=== PATIENT | female | born 1985 | race Caucasian/White ===

== ENCOUNTER 2017-10-13 13:55 | Emergency (ER) | payer OTHER ==
[~2017-10-13] VITALS: Ht 154.9 cm; Wt 52.7 kg
[~2017-10-13 13:55] MED LIST: CLIN300C2 PO; OXYC-81 PO; PRDXLUD MT; iud PV
[2017-10-13 13:57] VITALS: TEMP 36.6; Ht 154.9 cm; Wt 52.7 kg
--- NOTE | 2017-10-13 14:25 | DIAGNOSTIC IMAGING REPORT ---
L FOREARM 2 VIEWS ROUTINE CLINICAL HISTORY: L arm pain s/p fall trauma. Pain. COMPARISON: None. DISCUSSION: The bones and joint spaces appear intact. There is no evidence of fracture, dislocation or bony disease. There is no evidence for soft tissue swelling. IMPRESSION: Negative study. The above report was generated using voice recognition software. It may contain grammatical, syntax or spelling errors. Electronically signed by: Ibrahima Lopez M.D. 10/13/2017 2:23 PM Dictated Date/Time: 10/13/2017 2:22 PM
[2017-10-13] MEDS ORDERED: ERGO500037 PO (14:26)
[2017-10-13] MEDS ORDERED: EFF/375 PO (14:26)
[2017-10-13] MEDS ORDERED: LEVO1IUD2 (14:26)
--- NOTE | 2017-10-13 14:26 | DIAGNOSTIC IMAGING REPORT ---
L HAND MIN 3 VIEWS ROUTINE HISTORY: 32 years-old Female L arm pain s/p fall acute posterior back left hand pain with history of recent fall COMPARISON: Left forearm radiograph of same day TECHNIQUE: 3 views of the left hand FINDINGS: There is mild dorsal hand and wrist soft tissue swelling. No acute fracture, dislocation or significant degenerative changes. No opaque foreign body. IMPRESSION: Mild soft tissue swelling without fracture. The above report was generated using voice recognition software. It may contain grammatical, syntax or spelling errors. Electronically signed by: Benjamin Alexis M.D. 10/13/2017 2:25 PM Dictated Date/Time: 10/13/2017 2:22 PM
--- NOTE | 2017-10-13 14:45 | EMERGENCY ROOM VISIT NOTE ---
History First contact with patient: 14:07 Chief Complaint: HAND PAIN/INJURY Stated Complaint: LEFT HAND PAIN FROM FALL History of Present Illness The patient is a 32 year old female who presents to the Emergency Room via private vehicle with complaints of "left hand pain from fall". The patient states that today while at home she tripped, fell and landed on an outstretched left hand. She notes pain down the left wrist. She states that it hurts to move the left wrist. She rates the overall pain is a 7/10. She denies striking her head, loss of consciousness or syncopal event. She is right-hand dominant. Review of Systems A complete 6-point Review of Systems was discussed with the patient, with pertinent positives and negatives listed in the History of Present Illness. All remaining Review of Systems questions can be considered negative unless otherwise specified. Past Medical/Surgical History No pertinent. Family History No pertinent. Social History Smoking Status: Current Every Day Smoker Housing Status: lives with family Occupation Status: employed Patient lives locally. Current/Historical Medications Scheduled Ergocalciferol (Vitamin D 24373 Unit), 1 CAP PO WK Venlafaxine Hcl (Effexor), 1 TAB PO BID Scheduled PRN Hydrocodone/Acetaminophen 5MG/325MG (Arnold 5MG/325MG), 1 TABLET PO Q6 PRN for Pain Miscellaneous Medications Levonorgestrel (Iud) (Mirena) Physical Exam Vital Signs Date Time Temp Pulse Resp B/P (MAP) Pulse Ox O2 Delivery O2 Flow Rate FiO2 10/13/17 15:10 84 16 123/78 100 10/13/17 13:57 36.6 82 20 120/74 99 Room Air Physical Exam VITAL SIGNS - Vital signs and nursing notes were reviewed. Stable. Afebrile. GENERAL -32-year-old female appearing her stated age who is in no acute distress. Communicates well with provider and answers questions appropriately. SKIN - Without rashes. No meningeal or petechial rash. The skin overlying the left wrist is unremarkable. No bony deformity noted. HEAD - NC/AT. EXTREMITIES - No clubbing or peripheral cyanosis. Skin as noted above. Throughout her stay the left arm did have some bruising noted in the left dorsal wrist/proximal hand region. There is no direct bony tenderness. Generalized tenderness noted about the left wrist and distal forearm. There is also proximal palmar hand pain. No finger pain or proximal forearm/elbow tenderness. She is neurovascularly intact distally. Decreased range of motion about the left wrist noted. Medical Decision & Procedures ER Provider Diagnostic Interpretation: L HAND MIN 3 VIEWS ROUTINE HISTORY: 32 years-old Female L arm pain s/p fall acute posterior back left hand pain with history of recent fall COMPARISON: Left forearm radiograph of same day TECHNIQUE: 3 views of the left hand FINDINGS: There is mild dorsal hand and wrist soft tissue swelling. No acute fracture, dislocation or significant degenerative changes. No opaque foreign body. IMPRESSION: Mild soft tissue swelling without fracture. The above report was generated using voice recognition software. It may contain grammatical, syntax or spelling errors. Electronically signed by: Benjamin Alexis M.D. 10/13/2017 2:25 PM Dictated Date/Time: 10/13/2017 2:22 PM L FOREARM 2 VIEWS ROUTINE CLINICAL HISTORY: L arm pain s/p fall trauma. Pain. COMPARISON: None. DISCUSSION: The bones and joint spaces appear intact. There is no evidence of fracture, dislocation or bony disease. There is no evidence for soft tissue swelling. IMPRESSION: Negative study. The above report was generated using voice recognition software. It may contain grammatical, syntax or spelling errors. Electronically signed by: Ibrahima Lopez M.D. 10/13/2017 2:23 PM Dictated Date/Time: 10/13/2017 2:22 PM Medical Decision Patient was seen and evaluated as above in room D7. Review was performed of nursing notes and vital signs. After obtaining a thorough history and physical examination the above work up was performed. She presents to us today with left wrist/proximal hand pain status post fall. She is nontoxic on exam. Ice packs were applied. She declined pain medication initially. X-ray results as above. These were reviewed by myself and the radiologist. No acute fracture. I discussed the results with the patient. She was educated upon risk of occult fracture. She was splinted with a Velcro wrist lacer. She is to follow with orthopedics if persistence of pain in 5-7 days or return with worsening. She was educated upon worrisome symptoms which to return. I suspect most likely left wrist sprain/contusion. Patient notes she is tried [id number] pain medication prior to coming here with minimal relief. She requested something stronger. There are no red flags in the [place] drug monitoring system therefore a very short supply was provided to the patient of [facility]. She was educated to not drive with this as well as risks. The patient was educated upon management, had questions answered prior to discharge, and was discharged home in good condition. In the evaluation and treatment of this patient, the following differential diagnoses were considered: Wrist Sprain, Wrist Fracture, Wrist Dislocation, Scapholunate Dissociation, Carpal Fracture, Metacarpal Fracture, Radial Styloid Process Fracture, Ulnar Styloid Process Fracture, or Carpal Tunnel Syndrome. Impression Primary Impression: Fall Additional Impression: Wrist pain, left Departure Information Dispostion Home / Self-Care Condition GOOD Prescriptions Hydrocodone/Acetaminophen 5MG/325MG (Arnold 5MG/325MG) Tab 1 TABLET PO Q6 Y for Pain, #9 TAB For Initial Treatment Prov: Audi Maurice PA-C 10/13/17 Referrals No Doctor, Assigned (PCP) José Miguel Valadez MD Patient Instructions [facility] Additional Instructions You have been treated in the Emergency Department for Wrist Pain. For pain control, you can use the following [id number] medicines (if >12 yo): - Regular strength (325mg/tab) Tylenol (acetaminophen) 2 tabs every 4-6 hours as needed. Do not exceed 12 tablets in a 24 hour period. Avoid taking more than 3 grams (3000 mg) of Tylenol per day. This includes any other sources of acetaminophen you may take on a regular basis. - Regular strength (200 mg/tab) Advil (ibuprofen) 1-2 tabs every 4-6 hours as needed. Do not exceed a dose of 3200 mg per day. If this is a recent injury (<24 hrs), ice can be applied to the area of pain for the first 3 days to help decrease pain and inflammation. You have been provided the number for an Orthopaedic Surgeon. You should call this number as soon as possible to establish a follow-up visit from today's Emergency Department visit. Keep the brace/splint in place until evaluated by Orthopedics. Return to the Emergency Department if your current symptoms worsen despite treatment course outlined above, or if you develop any of the following symptoms : intractable pain despite aforementioned treatment course or new onset of numbness or tingling of the fingers. Problem Qualifiers
[2017-10-13] MEDS ORDERED: HYDR-5688 PO (15:00)
[2017-10-13 15:10] VITALS: BP 123/78; PULSE 84; O2SAT 100
== END 2017-10-13 15:11 | disposition home or self-care (01) ==
LOC: C.EDB 13:56 → C.EDD 15:11
DX: M25.532 Pain in left wrist (principal); W01.0XXA Fall on same level from slipping, tripping and stumbling without subsequent striking against object, initial encounter; Y92.019 Unspecified place in single-family (private) house as the place of occurrence of the external cause; F17.210 Nicotine dependence, cigarettes, uncomplicated; Z79.899 Other long term (current) drug therapy